=== PATIENT | female | born 1975 | race Caucasian/White ===

== ENCOUNTER → 2019-05-19 09:21 | Outpatient (CLI) | payer OTHER, SELFPAY ==
[2019-04-01 15:23] VITALS: BMI 34.2
--- NOTE | 2019-04-02 12:14 | HP_ITS ---
Intake Vital Signs 04/01/19 Height 5 ft 8 in 04/01/19 Weight: 225 lb 04/01/19 Body Mass Index (BMI) 34.2 04/01/19 Blood Pressure 187/122 H 04/01/19 Blood Pressure Location Rt brachial 04/01/19 Blood Pressure Position Sitting 04/01/19 Respiratory Rate 18 04/01/19 Pulse Rate 80 04/01/19 Pulse Source Monitor 04/01/19 Temperature 98.7 F 04/01/19 Temperature Source Oral 04/01/19 Pulse Ox 100 04/01/19 Oxygen Delivery Method room air Intake Visit Reasons: Calculus of gallbladder [employer] Worker Required: No Is patient in pain?: No Allergies No Known Allergies Allergy (Unverified 04/01/19 15:25) Medications dicyclomine 10 mg capsule 10 mg PO TID 04/01/19 [History Confirmed 04/01/19] ferrous sulfate 325 mg (65 mg iron) tablet 325 mg PO DAILY tab 04/01/19 [History Confirmed 04/01/19] multivitamin capsule 1 cap PO DAILY 04/01/19 [History Confirmed 04/01/19] PFSH Medical History Abdominal pain (Acute) Anemia (Acute) Cholelithiasis (Acute) Fatigue (Acute) Surgical History History of tonsillectomy (Acute) Family History Father Asthma Hypertension Social History Smoking Status: Never smoker alcohol intake: never substance use type: does not use HPI HPI HPI: TAYLER LINDQUIST, is a 43 F who presents to the office today for HPI HPI Surgical H&P: Yes HPI: TAYLRE LINDQUIST, is a 43 F who presents to the office today for evaluation of symptomatic cholelithiasis. Patient has over the last month probably 5 weeks had several episodes of right flank pain radiating into her back. She describes it as sharp in nature. And has been increasing in nature. She has had a gallbladder ultrasound which showed cholelithiasis. The gallbladder wall was 4 mm. There is no pericholecystic fluid. There was a negative sonographic Dominguez sign. The common bile duct was 2 mm in size ROS General General: Yes fatigue; no weight change, appetite, colon cancer, breast cancer or weakness HEENT HEENT: No difficulty swallowing, eye injury, eye surgery, swollen glands or hoarseness Endo Endocrine: No thyroid disease, diabetes mellitus, thyroid cancer, Hair loss, heat intolerance or cold intolerance Skin Skin: No rash or changing moles Breast Breast: No left breast lump, right breast lump, nipple discharge, breast pain, abnormal mammogram, abnormal US or breast enlargement Musc Musculoskeletal: No back problems, arthritis, rheumatoid arthritis, gout or joint pain Cardio Cardiovascular: No murmur, pacemaker, heart disease, atrial fibrillation, high blood pressure, heart attack, heart stent, palpitations, shortness of breat with exertion or chest pain Psych Psychiatric: No depression, anxiety or hearing voices Resp Respiratory: No shortness of breath, No sleep apnea, No cough, No COPD, No asthma, No emphysema, No wheezing Gastro Gastrointestinal: Yes abdominal pain, No nausea or vomiting, No diarrhea, No constipation, No blood in stool, No acid reflux, No hemorrhoids, No ulcers, Yes gallbladder problem, No black,tarry stools Carter Hematologic: No blood thinners, No blood disorders, No bleeding, No anemia, No blood clots Neuro Neurologic: No system reviewed and no additional complaints, except as docu, No as per HPI, No abnormal walking, No abnormal hearing, No abnormal movements, No abnormal speech, No behavioral changes, No burning sensations, No confusion, No seizure-like activity, No unsteadiness, No dizziness, No localized weakness, No frequent falls, No headache(s), No lack of coordination, No loss of vision, No memory loss, No numbness, No other visual disturbances, No radiating pain, No restless legs, No sensory deficit, No fainting, No tingling, No tremor(s), No weakness, No other Exam Const General: no acute distress, well developed, well hydrated Orientation: oriented to person, oriented to place, oriented to time [facility] Head: normocephalic, atraumatic Ears: external ears normal Mouth: moist mucous membranes Eyes Sclera: sclerae normal Pupils: normal by confrontation Neck Neck: no lymphadenopathy noted Neck mass: No Thyroid: thyroid normal, symmetrical Chest Chest palpation & inspection: normal inspection of the chest Breast Palpation: No nipple discharge Resp Effort & Inspection: normal respiratory effort Auscultation: clear to auscultation bilaterally Percussion: percussion normal Cardio Rate: regular rate Rhythm: regular rhythm Heart Sounds: no murmurs GI Palpation: soft, no hepatosplenomegaly, no masses, tender Auscultation: normal bowel sounds Rectal Exam: other Other: Rectal exam deferred. Extrem General: normal to inspection, no clubbing, cyanosis or edema Assessment & Plan Problems 1. Calculus of gallbladder with acute on chronic cholecystitis without obstruction K80.12 2. Abdominal pain, RUQ R10.11 Plan Reviewed the anatomy with the patient and discussed the procedure: laparoscopic cholecystectomy with possible cholangiograms, possible open. Review risks including but not limited to bleeding, infection, hernia, bile leak, retained gallstones requiring another procedure ERCP- Endoscopic Retrograde Cholangiopancreatography, injury to another organ (bile ducts, common bile duct, small bowel, etc.) and conversion to an open procedure. All questions were answered. Coding Level of Care Code Off vis,new,level 3 Diagnoses Calculus of gallbladder with acute on chronic cholecystitis without obstruction K80.12 ??Cholelithiasis location: gallbladder ??Cholecystitis acuity: acute and chronic Abdominal pain, RUQ R10.11 04/02/19 1215 <Electronically signed by Pierre Rendon MD> Date Pierre Rendon MD
[2019-04-21 08:41] LABS: Internal QC Validated? YES +Cl - CLEAR BKGD; Pregnancy, Urine Negative Negative
[2019-04-21 08:55] VITALS: BP 207/104; PULSE 94; RESP 14; TEMP 36.3; O2SAT 99; BMI 33.7
== END ==
LOC: AC 04-21 09:37 → SDC 09:22
PROVIDERS: Anesthesiology; Family Provider Nurse Practitioner Family; PCP Nurse Practitioner Family; Referring Provider Surgery; Visit Provider Surgery
DX: R10.11 Right upper quadrant pain (principal); Z53.9 Procedure and treatment not carried out, unspecified reason
CPT/HCPCS: 81025; 93005; J7120; J2405

== ENCOUNTER 2019-05-26 11:49 | Day surgery (SDC) | payer OTHER, SELFPAY ==
[2019-04-21 08:55] VITALS: BMI 33.7
[2019-05-19 11:12] VITALS: BP 191/95; PULSE 101; RESP 16; TEMP 36.5; O2SAT 100; BMI 34.3
[2019-05-19 11:36] LABS: Hematocrit 39.9 % (37-47); Hemoglobin 12.1 g/dL (12.0-15.0); Mean Corp Hgb Conc 30.3 g/dL (32-36); Mean Corpuscular Hgb 24.9 pg (27.0-32.0); Mean Corpuscular Volume 82.1 fL (81-99); Mean Platelet Vol. 10.6 fl (6.2-12.0); Platelet Count 347 K/mm3 (150-450); RBC Distribution Width CV 18.6 % (11.6-14.6); RBC Distribution Width SD 55.6 fl (35.1-43.9); Red Blood Count 4.86 M/mm3 (4.2-5.4); White Blood Count 6.9 K/mm3 (4.4-11.0)
[2019-05-19 11:47] LABS: International Normalized Ratio 1.1; Prothrombin Time (Protime)PT. 13.9 SECONDS (11.7-14.9)
[2019-05-19 11:48] LABS: Partial Thromboplast Time 33.9 Seconds (24.1-36.2)
[2019-05-19 11:55] LABS: Anion Gap 3 (5-15); BUN 13 mg/dL (7-18); BUN/Creat Ratio 16.1 RATIO (10-20); Calcium,Total 9.5 mg/dL (8.5-10.1); Chloride 102 mmol/L (98-107); EST Glomerular Filtration Rate 82 mL/min (>60); Est Glom Filt Rate - Afr Amer 100 mL/min (>60); Estimated Creatinine Clearance 91.47 ml/min; Glucose 98 mg/dL (74-106); Potassium 3.4 mmol/L (3.5-5.1); Sodium Level 138 mmol/L (136-145)
[2019-05-22 12:30] VITALS: BMI 33.7
[2019-05-26] VITALS (7 sets, daily range): BP systolic 110–168; BP diastolic 74–87; PULSE 74–118; RESP 16–20; TEMP 36–37.1; O2SAT 94–100; BMI 33.3
[2019-05-26 12:31] LABS: Internal QC Validated? YES +Cl - CLEAR BKGD; Pregnancy, Urine Negative Negative
--- NOTE | 2019-05-26 13:35 | GALL_PTH ---
PATIENT: TAYLER LINDQUIST [place] [facility] [place][id number] AGE/SX: 43/F ROOM: RE05/26/[address]: Dr. Pierre Rendon MD : 1975 BED: DIS: 05/26/2019 SPEC #: [id number] RECD: 05/27/19 08:16 STATUS: JASMINA JULIAN #: [id number] JOSR: 05/26/19 13:[address]: Pierre Rendon DEPT: SURGICAL PATHOLOGY RECD BY: Bne Vigil ENTERED: 05/27/19 10:58 SP TYPE: BETHANY TIJERINA DR: Anahi Mitchell, [employer] INSPECTOR-C Tissues: Gallbladder, NOS Procedures: Surgery Specimen Level III HEADER OPERATION: Laparoscopic cholecystectomy PRE-OP DIAGNOSIS: Calculus of gallbladder with acute on chronic cholecystitis without obstruction; abdominal pain right upper quadrant TISSUE SUBMITTED: Gallbladder MICROSCOPIC DIAGNOSIS Gallbladder, cholecystectomy: Chronic cholecystitis and cholelithiasis. AM:yousuf 05/28/19 MICROSCOPIC DESCRIPTION Slides are reviewed. GROSS DESCRIPTION Received is one container labeled with the patient's name and designated gallbladder. The specimen consists of a gallbladder measuring 11 cm in length and 3 cm in diameter. The external surface is pink-finnegan, smooth and glistening for the most part. Focally it is granular, hemorrhagic and contains cautery artifact. The gallbladder contains green-yellow mucoid bile and two ovoid stones measuring 1 and 3 cm in greatest dimension. The mucosa is bile-stained and without any mass lesions. The gallbladder wall measures up to 0.5 cm in thickness. Status Controller sections from the gallbladder and the cystic duct are submitted in one cassette. / SJ:yousuf 05/27/19 TC:3 CPT: 83088
[2019-05-26] MEDS: Cefazolin 2 GM in 0.9% Normal Saline 100 ML IV (13:43)
--- NOTE | 2019-05-26 14:00 | PCM.HP.BLA ---
History and Physical Date of Admission: 05/26/19 [facility] [address] [place] [address] OFFICE VISIT Date of Service: 05/19/19 MR#: [id number] Acct: [id number] Name: TAYLER LINDQUIST Rep #: [id number] : 1975 Provider: Paola Valdes PA-C Age/Sex: 43/F Location: [facility] Status: Signed Intake Vital Signs 05/19/19 Body Mass Index (BMI) 33.7 05/19/19 Blood Pressure 162/101 H 05/19/19 Blood Pressure Location Lt brachial 05/19/19 Blood Pressure Position Sitting 05/19/19 Blood Pressure 167/104 H 05/19/19 Blood Pressure Location Lt radial 05/19/19 Blood Pressure Position Sitting 05/19/19 Height 5 ft 8 in 05/19/19 Weight: 225 lb 05/19/19 Body Mass Index (BMI) 34.2 05/19/19 Blood Pressure 176/114 H 05/19/19 Blood Pressure Location Rt brachial 05/19/19 Blood Pressure Position Sitting 05/19/19 Respiratory Rate 18 05/19/19 Pulse Rate 102 H 05/19/19 Pulse Source Monitor 05/19/19 Temperature 98.2 F 05/19/19 Temperature Source Oral 05/19/19 Pulse Ox 100 05/19/19 Oxygen Delivery Method room air Intake Visit Reasons: update h&p lap lesa w/ pos sgras 7-30 DP Site Leasing Agent Required: No Is patient in pain?: No Allergies No Known Allergies Allergy (Verified 05/19/19 11:05) Medications ferrous sulfate 325 mg (65 mg iron) tablet 325 mg PO DAILY tab 04/01/19 [History Confirmed 05/19/19] multivitamin capsule 1 cap PO DAILY 04/01/19 [History Confirmed 05/19/19] hydrochlorothiazide 25 mg tablet 25 mg PO DAILY 05/19/19 [History Confirmed 05/19/19] lisinopril 40 mg tablet 40 mg PO DAILY 05/19/19 [History Confirmed 05/19/19] PFSH Medical History Abdominal pain (Acute) Anemia (Acute) Cholelithiasis (Acute) Fatigue (Acute) Surgical History History of tonsillectomy (Acute) Family History Father Asthma Hypertension Social History (Updated 05/21/19 @ 15:57 by Pal[place] Valdes PA-C) Smoking Status: Never smoker alcohol intake: never substance use type: does not use HPI HPI HPI: TAYLER LINDQUIST, is a 43 F who presents to the office today for HPI HPI Surgical H&P: Yes HPI: TAYLER LINDQUIST, is a 43 F who presents to the office today for an update history and physical. Patient denies recent hospitalizations or illnesses. Patient was canceled for surgery the day of due to high blood pressure. She was placed on HCTZ and lisinopril. Patient was cleared by her PCP. Patient notes she has continued to have small gallbladder attacks. Patient's previous history per Dr. Rendon: TAYLER LINDQUIST, is a 43 F who presents to the office today for evaluation of symptomatic cholelithiasis. Patient has over the last month probably 5 weeks had several episodes of right flank pain radiating into her back. She describes it as sharp in nature. And has been increasing in nature. She has had a gallbladder ultrasound which showed cholelithiasis. The gallbladder wall was 4 mm. There is no pericholecystic fluid. There was a negative sonographic Dominguez sign. The common bile duct was 2 mm in size. ROS General General: Yes fatigue; no weight change, appetite, colon cancer, breast cancer or weakness HEENT HEENT: No difficulty swallowing, eye injury, eye surgery, swollen glands or hoarseness Endo Endocrine: No thyroid disease, diabetes mellitus, thyroid cancer, Hair loss, heat intolerance or cold intolerance Skin Skin: No rash or changing moles Breast Breast: No left breast lump, right breast lump, nipple discharge, breast pain, abnormal mammogram, abnormal US or breast enlargement Musc Musculoskeletal: No back problems, arthritis, rheumatoid arthritis, gout or joint pain Cardio Cardiovascular: Yes high blood pressure; no murmur, pacemaker, heart disease, atrial fibrillation, heart attack, heart stent, palpitations, shortness of breat with exertion or chest pain Psych Psychiatric: No depression, anxiety or hearing voices Resp Respiratory: No shortness of breath, No sleep apnea, No cough, No COPD, No asthma, No emphysema, No wheezing Gastro Gastrointestinal: Yes abdominal pain, No nausea or vomiting, No diarrhea, No constipation, No blood in stool, No acid reflux, No hemorrhoids, No ulcers, Yes gallbladder problem, No black,tarry stools Carter Hematologic: No blood thinners, No blood disorders, No bleeding, No anemia, No blood clots Neuro Neurologic: No weakness Exam Const General: cooperative, healthy appearing, comfortable, no acute distress [facility] Head: normal to inspection Eyes General: appearance normal, both eyes and all related structures Neck Neck: normal visual inspection Neck mass: No Chest Breast Palpation: No nipple discharge Resp Effort & Inspection: normal respiratory effort Cardio Rate: regular rate Rhythm: regular rhythm Heart Sounds: no murmurs GI Inspection: normal to inspection Palpation: soft, tender (RUQ) Auscultation: normal bowel sounds Skin General: no rashes or lesions noted Neuro General: no focal motor deficits, CN's II-XI intact bilaterally Extrem General: normal to inspection Psych Appearance: grossly normal Affect: normal affect Assessment & Plan Problems 1. Right upper quadrant abdominal pain R10.11 2. Calculus of gallbladder with acute on chronic cholecystitis without obstruction K80.[address] Rendon will plan to perform a laparoscopic cholecystectomy. Procedure details, risks and benefits have been explained to the patient. Patient has had the opportunity to ask and have questions answered. I am going to contact her PCP to discuss the patient's high blood pressure, as it was too high in the office today to proceed. I will continue to send patient to [facility] to continue through the process. After speaking to RIAZ Christian, She will speak tot he patient about possibly adding another high blood pressure medication in addition to possibly adding Ativan for the procedure only. Our office will recheck patient's blood pressure on Saturday, the day prior to the procedure. Coding Level of Care Code No Charge Diagnoses Right upper quadrant abdominal pain R10.11 ??Abdominal location: right upper quadrant Calculus of gallbladder with acute on chronic cholecystitis without obstruction K80.12 ??Cholecystitis presence: with cholecystitis ??Cholecystitis acuity: acute and chronic ??Biliary obstruction: without biliary obstruction Comment Update H&P 05/21/19 2109 <Electronically signed by Paola Valdes PA-C> Date Paola Resendez Signature: Date (if applicable) CC: ~ I have re-examined the patient. There are no clinical changes since date of exam.
--- NOTE | 2019-05-26 14:03 | PCM.OPRPT ---
Problem List (1) Calculus of gallbladder with acute on chronic cholecystitis without obstruction Status: Chronic (2) Right upper quadrant pain Status: Acute Report of Operation Date of Procedure: 05/26/19 Pre-Operative Diagnosis: Symptom medic cholelithiasis. Right upper quadrant abdominal pain Post-Operative Diagnosis: Same Surgery/Procedure Performed:: Laparoscopic cholecystectomy Type of Anesthesia:: General Anesthesiologist: Mike Barrett Specimen's removed: Gallbladder Estimated Blood Loss (mL): < 25 cc Fluids Replaced: 600 cc LR Description of Procedure: Patient was brought into the operating room. Placed in the supine position. Under excellent general trach intubation abdomen was sterilely prepped and draped in usual fashion. Local was injected infra umbilically. Dissection was carried down to the fascia. The fascia grasped with a [place]. Varies needle was placed inside the abdomen. The abdomen was insufflated to 15 torr. A 10/12 trocar was placed without difficulty. The patient was placed in the head up and rotated to the left position. Subxiphoid #5 trocar was placed, inferior to this another #5 trocar was placed, laterally a #5 trocar was placed. All these under direct visualization with no injury to underlying structures. Gallbladder itself was aspirated was noted to be hydrops fundus was grasped and retracted in cephalad direction. Infundibulum was grasped and retracted laterally. I dissected out the cystic duct. I placed hemoclips proximally distally and ligated the duct. Identified the cystic artery. Placed hemoclips proximally distally and ligated the artery. Identified the posterior branch of the cystic artery placed a Hemoclip on this as well delivered the gallbladder from the gallbladder bed with use of electrocautery. I had no spillage of bile or stones. Placed a specimen specimen bag and delivered through the umbilical port without difficulty. Irrigated the right upper quadrant good hemostasis was noted. Remove the trochars under direct visualization good hemostasis was noted. Closed the fascia the umbilical port with a figure stitch of 0 Vicryl. Skin incisions were closed with subcuticular stitches of 4-0 Monocryl. Steri-Strips were applied sterile dressings were applied and the patient tolerated the procedure well. - Admit VTE Documentation VTE Present on Admission: No VTE Mechan Device Prophylaxis: SCD's VTE Pharm Prophylaxis ordered?: No Reason prophylaxis not ordered:: Treatment Not Indicated
--- NOTE | 2019-05-26 14:29 | DCINST_ITS ---
Discharge Diet: Light diet - advance as tolerated Discharge Activity: May Not Drive - for 2-3 days or while taking narcotic pain medications., - - Do not drive, work heavy equipment or sign legal documents for 24 hours. May shower in (days): 1 - with the bandage in place. Additional Activity Instructions:: Pain medication may cause nausea. You should typically eat light foods as you take your pain medications. Pain medication may also cause constipation. If this is a problem for you, please discuss with your doctor. Call your doctor if your incision/area has: Continuous Slow Oozing, Sudden Increased Bleeding, Increased Pain/ Swelling, Increased Redness, Foul Smelling Discharge Call your doctor if you observe: Fever of 101 or Higher Suture Line Care: Avoid Pulling/Pushing, Avoid Pinching/Bending Additional Dressing/Incision Instructions:: Leave operative bandaids on for 2 days. When you remove dressing, leave Steri-Strips on until your follow-up appointment, or until the Steri-Strips fall off on their own. Allergies/Adverse Reactions: Allergies No Known Allergies Allergy (Verified 05/25/19 09:47) Medications to take at Discharge ferrous sulfate 325 mg (65 mg iron) tablet 325 mg PO DAILY tab 04/01/19 multivitamin capsule 1 cap PO DAILY 04/01/19 hydrochlorothiazide 25 mg tablet 25 mg PO DAILY 05/19/19 lisinopril 40 mg tablet 40 mg PO DAILY 05/19/19 amlodipine 5 mg tablet 5 mg PO DAILY 05/22/19 lorazepam 0.5 mg tablet 0.5 mg PO QHS 05/25/19 Oxycodone HCl/Acetaminophen [Percocet 5/325] 1 - 2 tab PO Q4H PRN PRN 6 Days #30 tab 05/26/19 The following prescriptions were given: Oxycodone HCl/Acetaminophen [Percocet 5/325] 1 - 2 tab PO Q4H PRN PRN 6 Days #30 tab PRN Reason: Pain Prescription Printed Primary Care Physician: Anahi Mitchell NP-C [Primary Care Provider] - Test Results: Test results from this visit will be discussed in further detail at your follow- up appointment, if applicable. Please Follow Up With: Pierre Rendon MD - Please call [phone] to schedule an appointment. When: 7 days after your surgery.
[2019-05-26] MEDS: Bupivacaine Mpf 0.5% 30 ML VIAL (14:36)
== END 2019-05-26 17:09 | disposition home or self-care (01) ==
LOC: SDC 11:49 → AC 11:50
PROVIDERS: Anesthesiology; Family Provider Nurse Practitioner Family; PCP Nurse Practitioner Family; Referring Provider Surgery; Visit Provider Surgery
PROC: (CPT 47610; principal; 2019-05-26 13:15)
DX: K80.10 Calculus of gallbladder with chronic cholecystitis without obstruction (principal); D64.9 Anemia, unspecified
CPT/HCPCS: 47562; 80048; 81025; 85027; 85610; 85730; 88304; J7120; J2405